=== PATIENT | male | born 1965 | race American Indian/Alaskan Native ===

== ENCOUNTER 2018-12-16 11:24 | Emergency (ER) | payer OTHER ==
--- NOTE | 2018-12-16 11:40 | Emergency Department Report ---
Blank Doc - Documentation Documentation: This is a 53-year-old male that presents with left elbow tingling sensation to fingers. Patient denies one sided weakness. Denies headache, blurry vision or visual changes. Denies any other complaints or symptoms. This initial assessment/diagnostic orders/clinical plan/treatment(s) is/are subject to change based on patient's health status, clinical progression and re- assessment by fellow clinical providers in the ED. Further treatment and workup at subsequent clinical providers discretion. Patient/guardians urged not to elope from the ED as their condition may be serious if not clinically assessed and managed. Initial orders include: 1- Patient sent to [facility] for further evaluation and treatment
[2018-12-16 11:41] VITALS: BP 125/80
--- NOTE | 2018-12-16 12:47 | Emergency Department Report ---
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 The patient started having some pain and swelling to his left forearm with some tingling extending down through his fingers. Patient went to [facility] for a patient of health and was told that he may have had a "TIA or stroke". Patient was reluctant to believe that he may have had a stroke but became worried this morning when his left arm pain was still present. Patient has no focal deficits of weakness or numbness. Patient states that the pain as aching and throbbing in detail with palpation and certain movements. Patient denies any slurred speech. - Related Data Previous Rx's Medication Instructions Recorded Last Taken Type Ibuprofen [Motrin 800 MG tab] 800 mg PO Q8HR PRN #10 tablet 12/16/18 Unknown Rx methOCARBAMOL [Robaxin TAB] 500 mg PO Q6H PRN #14 tablet 12/16/18 Unknown Rx Allergies Allergy/AdvReac Type Severity Reaction Status Date / Time No Known Allergies Allergy Unverified 12/16/18 11:32 ED Review of Systems ROS: Stated complaint: LT ARM PAIN Other details as noted in HPI Comment: All other systems reviewed and negative ED Past Medical Hx - Past Medical History Previous Medical History?: Yes Hx Hypertension: Yes Hx Diabetes: Yes - Surgical History Past Surgical History?: No - Social History Smoking Status: Never Smoker Substance Use Type: None - Medications Home Medications: Home Medications Medication Instructions Recorded Confirmed Last Taken Type Ibuprofen [Motrin 800 MG tab] 800 mg PO Q8HR PRN #10 tablet 12/16/18 Unknown Rx methOCARBAMOL [Robaxin TAB] 500 mg PO Q6H PRN #14 tablet 12/16/18 Unknown Rx ED Physical Exam - General Limitations: No Limitations General appearance: alert, in no apparent distress - Head Head exam: Present: atraumatic, normocephalic - Eye Eye exam: Present: normal appearance - ENT ENT exam: Present: mucous membranes moist - Neck Neck exam: Present: normal inspection - Respiratory Respiratory exam: Present: normal lung sounds bilaterally. Absent: respiratory distress, wheezes, rales, rhonchi - Cardiovascular Cardiovascular Exam: Present: regular rate, normal rhythm, normal heart sounds. Absent: systolic murmur, diastolic murmur, rubs, gallop - GI/Abdominal GI/Abdominal exam: Present: soft, normal bowel sounds. Absent: distended, tenderness, guarding, rebound - Rectal Rectal exam: Present: deferred - Extremities Exam Extremities exam: Present: normal inspection - Expanded Upper Extremity Exam Left Forearm Wrist exam: Present: normal inspection, full ROM, tenderness (on the anterior proximal forearm. ), other (painpain forarm when pushing away). Absent: swelling Hand Wrist exam: Present: normal inspection, full ROM - Back Exam Back exam: Present: normal inspection - Neurological Exam Neurological exam: Present: alert, oriented X3 - Psychiatric Psychiatric exam: Present: normal affect, normal mood - Skin Skin exam: Present: warm, dry, intact, normal color. Absent: rash ED Course Vital Signs 12/16/18 11:39 Temperature 97.8 F Pulse Rate 79 Respiratory 20 Rate Blood Pressure 125/80 O2 Sat by Pulse 100 Oximetry ED Medical Decision Making - Medical Decision Making Patient shows no evidence of any weakness or decreased sensation. Patient has some aching of the muscle could've possibly also has some muscle spasm. Patient treated with medication for symptomatic relief. Critical care attestation.: If time is entered above; I have spent that time in minutes in the direct care of this critically ill patient, excluding procedure time. ED Disposition Clinical Impression: Muscle strain, Muscle spasm Disposition: - TO HOME OR SELFCARE Is pt being admited?: No Does the pt Need Aspirin: No Condition: Stable Instructions: Muscle Strain (ED) Referrals: BELLA CISNEROS MD [Primary Care Provider] - 3-5 Days Time of Disposition: 12:46
== END 2018-12-16 13:05 | disposition home or self-care (01) ==
LOC: ED 11:24
DX: S56.912A Strain of unspecified muscles, fascia and tendons at forearm level, left arm, initial encounter (principal); M62.838 Other muscle spasm; I10 Essential (primary) hypertension; E11.9 Type 2 diabetes mellitus without complications; X50.0XXA Overexertion from strenuous movement or load, initial encounter; Y93.89 Activity, other specified; Y92.69 Other specified industrial and construction area as the place of occurrence of the external cause; Y99.8 Other external cause status

== ENCOUNTER 2020-01-10 07:50 | Observation (INO) | payer OTHER ==
[2020-01-10] MEDS ORDERED: ASPIRIN 81 MG TAB CHEW PO ONE (07:56)
--- NOTE | 2020-01-10 08:05 | Emergency Department Report ---
ED Chest Pain HPI - General Chief Complaint: Chest Pain Stated Complaint: CHEST PAIN PUI?: No Time Seen by Provider: 01/10/20 07:55 Source: patient, EMS Mode of arrival: Stretcher Limitations: No Limitations - History of Present Illness Initial Comments: This is a 54-year-old male with history of hypertension, dyslipidemia, diabetes mellitus and obesity who presents with substernal right-sided chest pain since Friday. He has a dull squeezing intermittent pain. Pain is present at rest. 6 out of 10 dull pain. 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 No previous history of cardiac disease. No family history of cardiac disease. Patient does not smoke. MD Complaint: chest pain -: days(s) (3) Onset: during rest, during exertion Pain Location: substernal, right chest Pain Radiation: none Severity: moderate Severity scale (0 -10): 6 Quality: dull, squeezing, other Consistency: constant Improves With: nothing Worsens With: nothing re: denies: nausea, vomting, diaphoresis, dyspnea Other Symptoms: denies: cough, fever Treatments Prior to Arrival: none - Related Data Previous Rx's Medication Instructions Recorded Last Taken Type Ibuprofen [Motrin 800 MG tab] 800 mg PO Q8HR PRN #10 tablet 12/16/18 Unknown Rx methOCARBAMOL [Robaxin TAB] 500 mg PO Q6H PRN #14 tablet 12/16/18 Unknown Rx Allergies Allergy/AdvReac Type Severity Reaction Status Date / Time No Known Allergies Allergy Unverified 12/16/18 11:32 Heart Score - HEART Score History: Slightly suspicious EKG: Non-specific Age: 45-65 Risk factors: > 3 risk factors or hx of atherosclerotic disease Troponin: < normal limit HEART Score: 4 ED Review of Systems ROS: Stated complaint: CHEST PAIN Other details as noted in HPI Comment: All other systems reviewed and negative Constitutional: denies: fever, malaise Respiratory: denies: cough, shortness of breath Cardiovascular: chest pain Gastrointestinal: denies: abdominal pain, nausea, vomiting ED Past Medical Hx - Past Medical History Previous Medical History?: Yes Hx Hypertension: Yes Hx Diabetes: Yes Additional medical history: hypercholesterol - Family History Family history: hypertension - Social History Smoking Status: Never Smoker Substance Use Type: None - Medications Home Medications: Home Medications Medication Instructions Recorded Confirmed Last Taken Type Ibuprofen [Motrin 800 MG tab] 800 mg PO Q8HR PRN #10 tablet 12/16/18 Unknown Rx methOCARBAMOL [Robaxin TAB] 500 mg PO Q6H PRN #14 tablet 12/16/18 Unknown Rx ED Physical Exam - General Limitations: No Limitations General appearance: alert, in no apparent distress - Head Head exam: Present: atraumatic, normocephalic - Eye Eye exam: Present: normal appearance - ENT ENT exam: Present: mucous membranes moist - Neck Neck exam: Present: normal inspection, full ROM - Respiratory Respiratory exam: Present: normal lung sounds bilaterally. Absent: respiratory distress - Cardiovascular Cardiovascular Exam: Present: regular rate, normal rhythm, normal heart sounds. Absent: systolic murmur, diastolic murmur, rubs, gallop - GI/Abdominal GI/Abdominal exam: Present: soft, normal bowel sounds. Absent: distended, tenderness, guarding, rebound - Rectal Rectal exam: Present: deferred - Extremities Exam Extremities exam: Present: normal inspection - Back Exam Back exam: Present: normal inspection - Neurological Exam Neurological exam: Present: alert, oriented X3 - Psychiatric Psychiatric exam: Present: normal affect, normal mood - Skin Skin exam: Present: warm, dry, intact, normal color. Absent: rash ED Course Vital Signs 01/10/20 01/10/20 01/10/20 08:03 08:24 09:01 Pulse Rate 88 Respiratory 17 20 11 L Rate Blood Pressure 161/118 O2 Sat by Pulse 98 Oximetry 01/10/20 01/10/20 09:05 09:22 Pulse Rate 88 96 H Respiratory Rate Blood Pressure 161/118 147/96 O2 Sat by Pulse Oximetry ED Medical Decision Making - Lab Data Result diagrams: 01/10/20 08:34 01/10/20 08:34 - EKG Data EKG shows normal: axis - EKG Data 01/10/20 08:23 EKG obtained 0819 Atrial flutter irregular conduction ventricular rate 75 bpm normal axis no ST elevation - Medical Decision Making 1. Chest pain: Acute coronary syndrome is a consideration heart score 4 2. New onset atrial flutter heart rate ranges from 75-95 3. Hypertensive urgency addressed with nitroglycerin, beta-henry Admitted to the hospital service for further treatment and evaluation Critical care attestation.: If time is entered above; I have spent that time in minutes in the direct care of this critically ill patient, excluding procedure time. ED Disposition Clinical Impression: Acute coronary syndrome, New onset atrial flutter, Hypertensive urgency Disposition: 09 OP ADMIT IP TO THIS HOSP Is pt being admited?: Yes Does the pt Need Aspirin: No Condition: Stable Referrals: BELLA CISNEROS MD [Primary Care Provider] - 3-5 Days
[2020-01-10 08:51] LABS: Basophils # (Auto) 0.1 K/mm3 (0.0-0.1); Basophils % (Auto) 1.9 % (0.0-1.8); Hematocrit 40.2 % (35.5-45.6); Hemoglobin 13.6 gm/dl (11.8-15.2); Lymphocytes # (Auto) 1.3 K/mm3 (1.2-5.4); Lymphocytes % (Auto) 35.1 % (13.4-35.0); Mean Corpuscular HGB Conc 34 % (32-34); Mean Corpuscular Volume 85 fl (84-94); Monocytes # (Auto) 0.4 K/mm3 (0.0-0.8); Monocytes % (Auto) 11.5 % (0.0-7.3); Platelet Count 184 K/mm3 (140-440); Red Blood Count 4.75 M/mm3 (3.65-5.03); Red Cell Distribution Width 14.3 % (13.2-15.2)
--- NOTE | 2020-01-10 08:51 | XRay Report ---
CHEST 1 VIEW INDICATION: Chest Pain. COMPARISON: None FINDINGS: Support devices: None. Heart: Borderline heart size. Lungs/Pleura: No acute air space or interstitial disease. Additional findings: None. IMPRESSION: Borderline heart size. Lungs clear. Signer Name: Seb Strong Jr, MD Signed: 01/10/2020 8:47 AM Workstation Name: [id number]
[2020-01-10] MEDS: NITROGLYCERIN 0.4 MG TAB SUBL SL ONE ×2 (09:05→09:22)
[2020-01-10 09:08] LABS: BUN/Creatinine Ratio 14; Blood Urea Nitrogen 18 mg/dL (9-20); Calcium 9.1 mg/dL (8.4-10.2); Hemolysis Index 9
[2020-01-10] MEDS ORDERED: METOPROLOL TARTRATE 50 MG TAB PO ONE (10:42)
--- NOTE | 2020-01-10 12:15 | History and Physical Report ---
History of Present Illness Date of examination: 01/10/20 Date of admission: 01/10/20 10:39 Chief complaint: Right sided chest pain History of present illness: 54 year old male with HTN, dyslipidemia, DM and obesity who presents to [facility] with atypical substernal chest pain on the right side since Friday. He describes the pain as squeezing, intermittent and relived with rest. He says the pain was a 10/10 but denies pain at this time. He denies smoking, cough, fatigue, hemoptysis, recent weight loss, n/v, fevers, chills, recent travel or exposure to sick persons or known COVID 19 exposure. 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 Of note he was recently seen here on 12/17/19 for left arm pain after lifting heavy bags and was discharged with a diagnosis of muscle strain. ED workup included a CXR which showed borderline heart size with clear lungs and ECG which showed aflutter. He also received Aspirin 325 and Metoprolol 25mg PO x 1. He is being admitted to the hospital for atypical chest pain with workup and cardiology was consulted. Past History Past Medical History: diabetes, hypertension, hyperlipidemia, other (obesity) Past Surgical History: No surgical history Social history: , lives with family, full code. denies: smoking, alcohol abuse, prescription drug abuse Family history: diabetes, hypertension, stroke Medications and Allergies Allergies Allergy/AdvReac Type Severity Reaction Status Date / Time No Known Allergies Allergy Unverified 12/16/18 11:32 Home Medications Medication Instructions Recorded Confirmed Last Taken Type carvediloL [Coreg] 6.25 mg PO QDAY 01/10/20 01/10/20 10/27/19 History metFORMIN [Glucophage] 500 mg PO QDAY 01/10/20 01/10/20 01/10/20 08:00 History Review of Systems Constitutional: no weight loss, no weight gain, no fever, no chills, no sweats, no night sweats, no fatigue, no weakness, no malaise, no chronic headaches Ears, nose, mouth and throat: no ear pain, no ear discharge, no tinnitis, no decreased hearing, no nose pain, no nasal congestion, no nasal discharge Cardiovascular: chest pain (right sided, relieved with rest), edema (bilateral LE), high blood pressure, leg edema, no orthopnea, no palpitations, no rapid/irregular heart beat, no lightheadedness, no shortness of breath, no dyspnea on exertion Respiratory: no cough, no shortness of breath, no congestion, no wheezing, no pleurisy, no sleep apnea Gastrointestinal: no abdominal pain, no nausea, no vomiting, no diarrhea, no constipation, no change in bowel habits Genitourinary Male: no dysuria, no hematuria, no urinary frequency, no urinary hesitancy Rectal: no pain Musculoskeletal: leg numbness/tingling, no neck stiffness, no neck pain, no shooting arm pain, no arm numbness/tingling, no low back pain, no shooting leg pain Integumentary: no rash, no pruritis, no redness, no sores, no wounds Neurological: tingling, no head injury, no transient paralysis, no paralysis, no weakness, no numbness, no seizures, no vertigo, no headaches Psychiatric: no anxiety, no memory loss, no insomnia, no hypersomnia, no change in appetite Endocrine: no cold intolerance, no heat intolerance, no excessive thirst Hematologic/Lymphatic: no easy bruising, no easy bleeding Allergic/Immunologic: no allergic rhinitis Exam - Constitutional Vitals: Temp Pulse Resp BP Pulse Ox 96 H 11 L 147/96 98 01/10/20 11:32 01/10/20 09:01 01/10/20 11:32 01/10/20 09:01 General appearance: Present: no acute distress - EENT Eyes: Present: PERRL, EOM intact ENT: hearing intact - Neck Neck: Present: normal ROM - Respiratory Respiratory effort: normal Respiratory: bilateral: diminished (2/2 girth) - Cardiovascular Rhythm: irregularly irregular Heart Sounds: Present: S1 & S2. Absent: systolic murmur, diastolic murmur - Extremities Extremities: no ischemia, pulses intact, pulses symmetrical, normal temperature, normal color, Full ROM Extremity abnormal: edema (1+ to bilateral LE) Peripheral Pulses: within normal limits - Abdominal General gastrointestinal: Present: soft, non-tender, non-distended, normal bowel sounds - Integumentary Integumentary: Present: clear, warm, dry - Musculoskeletal Musculoskeletal: strength equal bilaterally - Psychiatric Psychiatric: appropriate mood/affect, cooperative - Neurologic Neurologic: CNII-XII intact, no focal deficits, moves all extremities - Allied Health Allied health notes reviewed: nursing HEART Score - HEART Score EKG: Non-specific Age: 45-65 Risk factors: > 3 risk factors or hx of atherosclerotic disease Troponin: Troponin T < 0.010 ng/mL (0.00-0.029) 01/10/20 08:34 Troponin: < normal limit Results - Labs CBC & Chem 7: 01/10/20 08:34 01/10/20 08:34 Labs: Laboratory Last Values WBC 3.6 K/mm3 (4.5-11.0) L 01/10/20 08:34 RBC 4.75 M/mm3 (3.65-5.03) 01/10/20 08:34 Hgb 13.6 gm/dl (11.8-15.2) 01/10/20 08:34 Hct 40.2 % (35.5-45.6) 01/10/20 08:34 MCV 85 fl (84-94) 01/10/20 08:34 MCH 29 pg (28-32) 01/10/20 08:34 MCHC 34 % (32-34) 01/10/20 08:34 RDW 14.3 % (13.2-15.2) 01/10/20 08:34 Plt Count 184 K/mm3 (140-440) 01/10/20 08:34 Lymph % (Auto) 35.1 % (13.4-35.0) H 01/10/20 08:34 Newton % (Auto) 11.5 % (0.0-7.3) H 01/10/20 08:34 Eos % (Auto) 1.0 % (0.0-4.3) 01/10/20 08:34 Baso % (Auto) 1.9 % (0.0-1.8) H 01/10/20 08:34 Lymph # 1.3 K/mm3 (1.2-5.4) 01/10/20 08:34 Newton # 0.4 K/mm3 (0.0-0.8) 01/10/20 08:34 Eos # 0.0 K/mm3 (0.0-0.4) 01/10/20 08:34 Baso # 0.1 K/mm3 (0.0-0.1) 01/10/20 08:34 Seg Neutrophils % 50.5 % (40.0-70.0) 01/10/20 08:34 Seg Neutrophils # 1.8 K/mm3 (1.8-7.7) 01/10/20 08:34 D-Dimer 161.10 ng/mlDDU (0-234) 01/10/20 08:34 Sodium 142 mmol/L (137-145) 01/10/20 08:34 Potassium 4.3 mmol/L (3.6-5.0) 01/10/20 08:34 Chloride 104.4 mmol/L (98-107) 01/10/20 08:34 Carbon Dioxide 26 mmol/L (22-30) 01/10/20 08:34 Anion Gap 16 mmol/L 01/10/20 08:34 BUN 18 mg/dL (9-20) 01/10/20 08:34 Creatinine 1.3 mg/dL (0.8-1.3) 01/10/20 08:34 Estimated GFR > 60 ml/min 01/10/20 08:34 BUN/Creatinine Ratio 14 % 01/10/20 08:34 Glucose 115 mg/dL (75-100) H 01/10/20 08:34 Calcium 9.1 mg/dL (8.4-10.2) 01/10/20 08:34 Troponin T < 0.010 ng/mL (0.00-0.029) 01/10/20 08:34 TSH 0.543 mlU/mL (0.270-4.200) 01/10/20 08:34 - Imaging and Cardiology EKG: report reviewed Chest x-ray: report reviewed - Diagnostic Impressions Diagnostic Impressions: 01/09 CXR with borderline enlarged heart and clear lungs Bedoya/IV: IV Catheter Type [Right INT / Saline Lock Antecubital] Assessment and Plan Advance Directives: No VTE prophylaxis?: Chemical, Mechanical Plan of care discussed with patient/family: Yes - Patient Problems (1) New onset atrial flutter Current Visit: Yes Status: Acute Plan to address problem: - Cardiac monitoring - Cardiology consulted - Coreg restarted - Lexiscan for AM - ASA 81 - Serial ECG, troponins - PRN nitroglycerin (2) Hypertensive urgency Current Visit: Yes Status: Chronic Plan to address problem: - HTN urgency in ED - Metoprolol 25mg PO x1 in ED - Home Coreg restarted - BP monitoring per protocol (3) Dyslipidemia Current Visit: Yes Status: Chronic Plan to address problem: - Lipid panel ordered (4) Diabetes Current Visit: Yes Status: Chronic Plan to address problem: - 01/09 HbA1C pending - SSI - Accucheck ACHS (5) Morbid obesity Current Visit: Yes Status: Acute (6) DVT prophylaxis Current Visit: Yes Status: Acute Plan to address problem: - SCDs while in bed - Heparin subq
[2020-01-10] MEDS ORDERED: DEXTROSE 50% IN WATER (25GM) 50 ML SYRINGE IV PRN (15:29)
[2020-01-10 16:18] LABS: Chol/HDL Ratio 4.21 %
[2020-01-10] MEDS ORDERED: INSULIN REGULAR, HUMAN 100 UNITS/1 ML IV SCH (16:30)
[2020-01-10] MEDS: [UNRECOGNIZED DRUG - OTHER] SUB-Q SCH (18:27)
[2020-01-10] MEDS: hydrALAZINE 20 MG/1 ML INJ IV PRN (18:31)
[2020-01-10] MEDS: ENOXAPARIN 30 MG/0.3 ML INJ SUB-Q SCH (18:31)
[2020-01-10] MEDS ORDERED: hydrALAZINE 20 MG/1 ML INJ IV ONE (20:33)
[2020-01-10] MEDS ORDERED: HEPARIN 5,000 UNIT/1 ML VIAL SUB-Q SCH (22:00)
[2020-01-10] MEDS: METOPROLOL TARTRATE 25 MG TAB PO SCH (23:02)
[2020-01-10] MEDS: hydrALAZINE 25 MG TAB PO SCH (23:02)
[2020-01-10] MEDS: ENOXAPARIN 100 MG/1 ML INJ SUB-Q SCH (23:02)
[2020-01-11] MEDS: hydrALAZINE 20 MG/1 ML INJ IV PRN (02:16)
[2020-01-11] MEDS: hydrALAZINE 25 MG TAB PO SCH ×2 (05:30→13:12)
[2020-01-11] MEDS: ENOXAPARIN 30 MG/0.3 ML INJ SUB-Q SCH (05:33)
[2020-01-11 05:39] LABS: Basophils % (Auto) 0.6 % (0.0-1.8); Eosinophils % (Auto) 0.8 % (0.0-4.3); Hematocrit 45.6 % (35.5-45.6); Hemoglobin 15.3 gm/dl (11.8-15.2); Lymphocytes # (Auto) 1.3 K/mm3 (1.2-5.4); Lymphocytes % (Auto) 26.3 % (13.4-35.0); Mean Corpuscular HGB Conc 34 % (32-34); Mean Corpuscular Volume 86 fl (84-94); Monocytes # (Auto) 0.5 K/mm3 (0.0-0.8); Monocytes % (Auto) 10.6 % (0.0-7.3); Platelet Count 187 K/mm3 (140-440); Red Blood Count 5.32 M/mm3 (3.65-5.03); Red Cell Distribution Width 14.7 % (13.2-15.2)
[2020-01-11 05:51] LABS: BUN/Creatinine Ratio 14; Blood Urea Nitrogen 14 mg/dL (9-20); Calcium 9.7 mg/dL (8.4-10.2); Hemolysis Index 2
[2020-01-11] MEDS: [UNRECOGNIZED DRUG - OTHER] SUB-Q SCH ×3 (08:09→16:30)
[2020-01-11] MEDS ORDERED: REGADENOSON 0.4 MG/5 ML INJ IV ONE ×2 (08:23→08:43)
--- NOTE | 2020-01-11 08:37 | Progress Note ---
Assessment and Plan - Patient Problems (1) New onset atrial flutter Current Visit: Yes Status: Acute Plan to address problem: - Cardiac monitoring - Cardiology consulted, appreciate recommendations: will have further assessment as an outpatient, for EVER guided cardioversion if atrial flutter persists. - Metoprolol 25mg BID - Eliquis 5 mg twice daily - 01/10 Lexiscan shows no ischemic defects, echocardiogram is pending for left ventricular function assessment - 01/10 EVER shows EF 60 to 65%, trace mitral valve and tricuspid valve regurgitation, mild aortic root dilation, mild bilateral atrial dilation - ASA 81mg qday - Serial ECG, troponins have been negative - PRN nitroglycerin (2) Hypokalemia Current Visit: Yes Status: Acute Plan to address problem: - K 3.5 - Replete as needed (3) Hypertensive urgency Current Visit: Yes Status: Chronic Plan to address problem: - HTN urgency in ED - Metoprolol 25mg PO x1 in ED - Metoprolol 25mg BID - BP monitoring per protocol (4) Dyslipidemia Current Visit: Yes Status: Chronic Plan to address problem: - Lipid panel ordered ( - Lipitor 40mg HS - Patient does not list a statin on home med list (5) Diabetes Current Visit: Yes Status: Chronic Plan to address problem: - 01/09 HbA1C 5.9 - SSI - Accucheck ACHS (6) Morbid obesity Current Visit: Yes Status: Acute Plan to address problem: - Weight loss counseling provided - May consider bariatric surgery, need to f/u outpatient (7) DVT prophylaxis Current Visit: Yes Status: Acute Plan to address problem: - SCDs while in bed - Eliquis 5 mg twice daily History Interval history: 54 year old male with HTN, dyslipidemia, DM and obesity who presents with atypical substernal chest pain on the right side since Friday, 01/06 was found to be in atrial flutter. Cardiology was consulted. Lexiscan scheduled for this AM. Patient states he feels much better and is ready to go home. 01/10: Lexiscan thallium stress test showed a normal perfusion with no ischemia, EVER showed EF 60 to 65% with trace mitral valve regurgitation and tricuspid valve regurgitation, mild dilatation of aortic root, mild dilatation of right and left atria Hospitalist Physical - Constitutional Vitals: Temp Pulse Resp BP Pulse Ox 97.7 F 79 18 144/99 94 01/11/20 04:20 01/11/20 07:59 01/11/20 04:20 01/11/20 04:20 01/11/20 04:20 General appearance: Present: no acute distress - EENT Eyes: Present: PERRL, EOM intact ENT: hearing intact - Neck Neck: Present: supple, normal ROM - Respiratory Respiratory effort: normal Respiratory: bilateral: diminished (Secondary to girth) - Cardiovascular Rhythm: regularly irregular Heart Sounds: Present: S1 & S2. Absent: systolic murmur, diastolic murmur - Extremities Extremities: no ischemia, pulses intact, pulses symmetrical, normal temperature, normal color, Full ROM Extremity abnormal: edema (Nonpitting) Peripheral Pulses: within normal limits - Abdominal General gastrointestinal: soft, non-tender, non-distended, normal bowel sounds - Integumentary Integumentary: Present: clear, warm, dry - Psychiatric Psychiatric: cooperative - Neurologic Neurologic: CNII-XII intact, no focal deficits, moves all extremities - Allied Health Allied health notes reviewed: nursing HEART Score - HEART Score EKG: Non-specific Age: 45-65 Risk factors: > 3 risk factors or hx of atherosclerotic disease Troponin: Troponin T < 0.010 ng/mL (0.00-0.029) 01/11/20 04:55 Troponin: < normal limit Results - Labs CBC & Chem 7: 01/11/20 04:55 01/11/20 04:55 Labs: Laboratory Last Values WBC 5.0 K/mm3 (4.5-11.0) 01/11/20 04:55 RBC 5.32 M/mm3 (3.65-5.03) H 01/11/20 04:55 Hgb 15.3 gm/dl (11.8-15.2) H 01/11/20 04:55 Hct 45.6 % (35.5-45.6) 01/11/20 04:55 MCV 86 fl (84-94) 01/11/20 04:55 MCH 29 pg (28-32) 01/11/20 04:55 MCHC 34 % (32-34) 01/11/20 04:55 RDW 14.7 % (13.2-15.2) 01/11/20 04:55 Plt Count 187 K/mm3 (140-440) 01/11/20 04:55 Lymph % (Auto) 26.3 % (13.4-35.0) 01/11/20 04:55 [place] % (Auto) 10.6 % (0.0-7.3) H 01/11/20 04:55 Eos % (Auto) 0.8 % (0.0-4.3) 01/11/20 04:55 Baso % (Auto) 0.6 % (0.0-1.8) 01/11/20 04:55 Lymph # 1.3 K/mm3 (1.2-5.4) 01/11/20 04:55 [place] # 0.5 K/mm3 (0.0-0.8) 01/11/20 04:55 Eos # 0.0 K/mm3 (0.0-0.4) 01/11/20 04:55 Baso # 0.0 K/mm3 (0.0-0.1) 01/11/20 04:55 Seg Neutrophils % 61.7 % (40.0-70.0) 01/11/20 04:55 Seg Neutrophils # 3.1 K/mm3 (1.8-7.7) 01/11/20 04:55 D-Dimer 161.10 ng/mlDDU (0-234) 01/10/20 08:34 Sodium 137 mmol/L (137-145) 01/11/20 04:55 Potassium 3.5 mmol/L (3.6-5.0) L 01/11/20 04:55 Chloride 98.0 mmol/L (98-107) 01/11/20 04:55 Carbon Dioxide 24 mmol/L (22-30) 01/11/20 04:55 Anion Gap 19 mmol/L 01/11/20 04:55 BUN 14 mg/dL (9-20) 01/11/20 04:55 Creatinine 1.0 mg/dL (0.8-1.3) 01/11/20 04:55 Estimated GFR > 60 ml/min 01/11/20 04:55 BUN/Creatinine Ratio 14 % 01/11/20 04:55 Glucose 144 mg/dL (75-100) H 01/11/20 04:55 POC Glucose 83 (70-105) 01/10/20 22:17 Hemoglobin A1c 5.9 % (4-6) 01/10/20 14:46 Calcium 9.7 mg/dL (8.4-10.2) 01/11/20 04:55 Troponin T < 0.010 ng/mL (0.00-0.029) 01/11/20 04:55 Triglycerides 117 mg/dL (2-149) 01/10/20 14:46 Cholesterol 215 mg/dL (50-199) H 01/10/20 14:46 LDL Cholesterol Direct 162 mg/dL (50-130) H 01/10/20 14:46 HDL Cholesterol 51 mg/dL (40-59) 01/10/20 14:46 Cholesterol/HDL Ratio 4.21 % 01/10/20 14:46 TSH 0.543 mlU/mL (0.270-4.200) 01/10/20 08:34 Bedoya/IV: Voiding Method Toilet IV Catheter Type [Right INT / Saline Lock Antecubital] Active Medications - Current Medications Current Medications: Generic Name Dose Route Start Last Admin Trade Name Freq PRN Reason Stop Dose Admin Aspirin 81 mg 01/11/20 10:00 Baby Aspirin PO QDAY RAGHU Dextrose 50 ml 01/10/20 15:29 D50w (25gm) Syringe IV Q30MIN PRN Hypoglycemia Protocol Enoxaparin Sodium 100 mg 01/10/20 22:00 01/10/20 23:02 Enoxaparin SUB-Q 100 mg Q12HR RAGHU Administration Enoxaparin Sodium 30 mg 01/10/20 18:00 01/11/20 05:33 Enoxaparin SUB-Q 30 mg Q12H RAGHU Administration Hydralazine HCl 25 mg 01/10/20 22:00 01/11/20 05:30 Apresoline PO 25 mg Q8HR RAGHU Administration Hydralazine HCl 10 mg 01/10/20 17:01 01/11/20 02:16 Apresoline IV 10 mg Q4HR PRN Administration Hypertension Insulin Human Regular 0 unit 01/10/20 16:30 01/11/20 08:09 Humulin R SUB-Q Not Given AC [facility] Protocol Metoprolol Tartrate 25 mg 01/10/20 22:00 01/10/20 23:02 Metoprolol PO 25 mg BID RAGHU Administration Pantoprazole Sodium 40 mg 01/11/20 10:00 Protonix IV QDAY RAGHU Sodium Chloride 10 ml 01/10/20 12:16 Sodium Chloride Flush Syringe 10 Ml IV PRN PRN LINE FLUSH
[2020-01-11] MEDS ORDERED: carvediloL 6.25 MG TAB PO SCH (10:00)
[2020-01-11] MEDS ORDERED: PANTOPRAZOLE 40 MG INJ IV SCH (10:00)
[2020-01-11] MEDS ORDERED: POTASSIUM CHLORIDE ER 20 MEQ TAB PO ONE (10:00)
[2020-01-11] MEDS ORDERED: ASPIRIN 81 MG TAB CHEW PO SCH (10:00)
--- NOTE | 2020-01-11 10:35 | Treadmill Report ---
THALLIUM STRESS TEST LEFT VENTRICLE: Left ventricular chamber size is within normal spread. Perfusion study demonstrates fairly homogeneous uptake of the tracer in all segments. No significant defects identified. Mild diaphragmatic attenuation artifact is noted. Gated study is not available due to the patient's irregular heartbeat. CONCLUSION: Normal myocardial perfusion, no defects identified. Clinical correlation is recommended and echocardiographic assessment of left ventricular function is recommended. JOB# [id number] CA/NTS
[2020-01-11] MEDS: METOPROLOL TARTRATE 25 MG TAB PO SCH (11:28)
[2020-01-11] MEDS: ENOXAPARIN 100 MG/1 ML INJ SUB-Q SCH (11:28)
--- NOTE | 2020-01-11 11:29 | Consultation ---
History of Present Illness Consult date: 01/11/20 Consult reason: chest pain, other (Atrial flutter) History of present illness: The patient is a 54-year-old man with hypertension and diabetes, on carvedilol and metformin. His primary care doctor is Dr. Vijay Pabon in [place]. He has no prior cardiac history. He presented to the emergency room with atypical, nonexertional chest pain associated with some shortness of breath. ECG in the emergency room was atrial flutter with 3-1 AV conduction, ventricular rate of 75. He was admitted for further evaluation and cardiac consultation was requested. Chest x-ray was normal size cardiac silhouette and clear lungs. Cardiac troponin levels were negative. TSH level was normal at 0.54. Today, he underwent a Lexiscan thallium stress test ordered by the medical service, results show a normal perfusion with no ischemia. Past History Past Medical History: diabetes, hypertension, hyperlipidemia, other (obesity) Past Surgical History: No surgical history Social history: , lives with family, full code. denies: smoking, alcohol abuse, prescription drug abuse Family history: diabetes, hypertension, stroke Medications and Allergies Allergies Allergy/AdvReac Type Severity Reaction Status Date / Time No Known Allergies Allergy Unverified 12/16/18 11:32 Home Medications Medication Instructions Recorded Confirmed Last Taken Type carvediloL [Coreg] 6.25 mg PO QDAY 01/10/20 01/10/20 10/27/19 History metFORMIN [Glucophage] 500 mg PO QDAY 01/10/20 01/10/20 01/10/20 08:00 History Active Meds: Active Medications Aspirin (Baby Aspirin) 81 mg PO QDAY [facility] Atorvastatin Calcium (Lipitor) 40 mg PO QHS [facility] Dextrose (D50w (25gm) Syringe) 50 ml IV Q30MIN PRN; Protocol PRN Reason: Hypoglycemia Enoxaparin Sodium (Enoxaparin) 100 mg SUB-Q Q12HR RAGHU Last Admin: 01/10/20 23:02 Dose: 100 mg Documented by: Enoxaparin Sodium (Enoxaparin) 30 mg SUB-Q Q12HR RAGHU Hydralazine HCl (Apresoline) 25 mg PO Q8HR RAGHU Last Admin: 01/11/20 05:30 Dose: 25 mg Documented by: Hydralazine HCl (Apresoline) 10 mg IV Q4HR PRN PRN Reason: Hypertension Last Admin: 01/11/20 02:16 Dose: 10 mg Documented by: Insulin Human Regular (Humulin R) 0 unit SUB-Q AC [facility]; Protocol Last Admin: 01/11/20 08:09 Dose: Not Given Documented by: Metoprolol Tartrate (Metoprolol) 25 mg PO BID [facility] Last Admin: 01/10/20 23:02 Dose: 25 mg Documented by: Pantoprazole Sodium (Protonix) 40 mg IV QDAY [facility] Sodium Chloride (Sodium Chloride Flush Syringe 10 Ml) 10 ml IV PRN PRN PRN Reason: LINE FLUSH Review of Systems Cardiovascular: chest pain, shortness of breath, no orthopnea, no palpitations, no rapid/irregular heart beat, no edema, no syncope, no lightheadedness Physical Examination Vital Signs Resp 17 01/10/20 08:03 General appearance: no acute distress HEENT: Positive: PERRL Neck: Positive: neck supple Cardiac: Positive: irregularly irregular Lungs: Positive: Decreased Breath Sounds Neuro: Positive: Grossly Intact Abdomen: Positive: Soft Male genitourinary: Positive: deferred Skin: Positive: Clear Extremities: Absent: edema Results 01/11/20 04:55 01/11/20 04:55 Lipids 01/10/20 Range/Units 14:46 Triglycerides 117 (2-149) mg/dL Cholesterol 215 H (50-199) mg/dL HDL Cholesterol 51 (40-59) mg/dL Cholesterol/HDL Ratio 4.21 % CBC 01/11/20 Range/Units 04:55 WBC 5.0 (4.5-11.0) K/mm3 RBC 5.32 H (3.65-5.03) M/mm3 Hgb 15.3 H (11.8-15.2) gm/dl Hct 45.6 (35.5-45.6) % Plt Count 187 (140-440) K/mm3 Lymph # 1.3 (1.2-5.4) K/mm3 [place] # 0.5 (0.0-0.8) K/mm3 Eos # 0.0 (0.0-0.4) K/mm3 Baso # 0.0 (0.0-0.1) K/mm3 Comprehensive Metabolic Panel 01/11/20 Range/Units 04:55 Sodium 137 (137-145) mmol/L Potassium 3.5 L (3.6-5.0) mmol/L Chloride 98.0 (98-107) mmol/L Carbon Dioxide 24 (22-30) mmol/L BUN 14 (9-20) mg/dL Creatinine 1.0 (0.8-1.3) mg/dL Glucose 144 H (75-100) mg/dL Calcium 9.7 (8.4-10.2) mg/dL EKG interpretations - Telemetry EKG Rhythm: Atrial Flutter Assessment and Plan - Patient Problems (1) Atrial flutter Current Visit: Yes Status: Acute Plan to address problem: Patient with hypertension diabetes and obesity, presents with atrial flutter, of uncertain chronicity. His AV rate control is optimal, on low-dose beta- henry. Lexiscan thallium stress test shows no ischemic defects. We have ordered an echocardiogram for left ventricular function assessment. Additional medical therapy will be based on left ventricular function. We will initiate long-term oral anticoagulation with Eliquis 5 mg twice daily for CVA prophylaxis. Ultimately, he will have further assessment as an outpatient, for EVER guided cardioversion if atrial flutter persists. (2) Chest pain Current Visit: Yes Status: Acute Plan to address problem: Chest pain is atypical, Lexiscan thallium stress test shows no ischemic defects, echocardiogram is pending for left ventricular function assessment.
[2020-01-11 13:12] VITALS: BP 154/74
--- NOTE | 2020-01-11 16:36 | Discharge Summary ---
Providers - Providers Date of Admission: 01/10/20 10:39 Date of discharge: 01/11/20 Attending physician: RAYA ISAACS 01/10/20 Consult to Cardiac Rehabilitation [CONS] Routine Reason For Exam: Phase I 01/10/20 12:16 Consult to Cardiology [CONS] Routine Consulting Provider: APRIL MCDOWELL Reason For Exam: Franko, NETTIE Primary care physician: BELLA CISNEROS MD Hospitalization Reason for admission: Atypical chest pain/new onset atrial flutter Condition: Stable Pertinent studies: Exercise stress test; no ischemia Echo EF 60 to 65%, mild LVH Chest x-ray; borderline heart size, lungs clear Hospital course: 54 year old male with HTN, dyslipidemia, DM and obesity who presents to [facility] with atypical substernal chest pain on the right side since Friday. Initial work-up was consistent with, new onset atrial flutter, patient had serial cardiac enzymes, subsequently evaluated by cardiology, underwent stress test which was negative for ischemia Normal left ventricular function, patient was started on beta-blockers, initially Lovenox full dose later changed to Eliquis 5 mg twice a day, patient's blood pressure medications were adjusted Today patient is comfortable no new complaints vital signs stable physical examination prior to discharge is unremarkable Cleared by cardiology for discharge and follow-up as outpatient for further evaluation of atrial flutter. Patient is hemodynamically and clinically stable at discharge Discharge diagnosis: --Atypical chest pain; stress test negative --New onset atrial flutter; rate controlled On beta-blockers, Eliquis --Hypertensive urgency; present on admission Now resolved with medications --Dyslipidemia; statin --Type 2 diabetes mellitus; Accu-Chek sliding scale coverage ADA diet, oral hypoglycemics Cleared by cardiology for discharge and follow-up as outpatient Stable at discharge Disposition: DC-01 TO HOME OR SELFCARE Time spent for discharge: 32 min Core Measure Documentation - Palliative Care Palliative Care/ Comfort Measures: Not Applicable - Core Measures Any of the following diagnoses?: none Exam - Constitutional Vitals: Temp Pulse Resp BP Pulse Ox 97.7 F 89 18 154/74 99 01/11/20 04:20 01/11/20 13:12 01/11/20 04:20 01/11/20 13:12 01/11/20 11:30 General appearance: Present: no acute distress, well-nourished - EENT Eyes: Present: PERRL, EOM intact - Neck Neck: Present: supple, normal ROM - Respiratory Respiratory effort: normal Respiratory: bilateral: diminished, negative: rales, rhonchi, wheezing - Cardiovascular Rhythm: regular Heart Sounds: Present: S1 & S2 - Extremities Extremities: no ischemia, No edema - Abdominal General gastrointestinal: Present: soft, non-tender, non-distended, normal bowel sounds - Integumentary Integumentary: Present: clear, warm - Musculoskeletal Musculoskeletal: strength equal bilaterally - Psychiatric Psychiatric: appropriate mood/affect, cooperative - Neurologic Neurologic: moves all extremities Plan Activity: no restrictions Diet: other (cardiac diet) Additional Instructions: If you have worsening symptoms contact MD or go to emergency room. Exercise as tolerated and weight reduction medically stable Follow up with: BELLA CISNEROS MD [Primary Care Provider] - 3-5 Days APRIL MCDOWELL MD [Staff Physician] - 7 Days Prescriptions: hydrALAZINE [Apresoline TAB] 25 mg PO Q8HR #90 tablet Apixaban [Eliquis] 5 mg PO Q12HR #60 tablet AtorvaSTATin [Lipitor] 40 mg PO QHS #30 tablet Metoprolol [Lopressor TAB] 25 mg PO BID #30 tablet
[2020-01-11] MEDS ORDERED: ENOXAPARIN 30 MG/0.3 ML INJ SUB-Q SCH (22:00)
[2020-01-11] MEDS ORDERED: APIXABAN 5 MG TAB PO SCH (22:00)
== END 2020-01-11 18:27 | disposition home or self-care (01) ==
LOC: ED 07:50 → 4A 10:39
PROVIDERS: ADMIT Internal Medicine; ATTEND Internal Medicine
DX: R07.89 Other chest pain (principal); I48.92 Unspecified atrial flutter; I16.0 Hypertensive urgency; E78.5 Hyperlipidemia, unspecified; E11.9 Type 2 diabetes mellitus without complications; E66.01 Morbid (severe) obesity due to excess calories; E87.6 Hypokalemia; I10 Essential (primary) hypertension; I24.9 Acute ischemic heart disease, unspecified; E78.00 Pure hypercholesterolemia, unspecified; Z79.84 Long term (current) use of oral hypoglycemic drugs; Z79.01 Long term (current) use of anticoagulants; Z79.899 Other long term (current) drug therapy; Z68.38 Body mass index [BMI] 38.0-38.9, adult
CPT/HCPCS: 36415; 71045; 78452; 80048; 80061; 82962; 83036; 84443; 84484; 85025; 85379; 93005; 93017; 93306; 96372; 96374; 96375; 96376; 99285; A9502; C9113; G0378; J0360; J1650; J2785; J1815

== ENCOUNTER 2021-05-07 09:37 | Emergency (ER) | payer OTHER ==
[2021-05-07] MEDS ORDERED: NITROGLYCERIN 0.4 MG TAB SUBL SL PRN (09:46)
--- NOTE | 2021-05-07 09:48 | Emergency Department Report ---
ED General Adult HPI - General Stated complaint: CHEST PAIN Time Seen by Provider: 05/07/21 09:43 - History of Present Illness Initial comments: Patient presents by ambulance secondary to chest pain. He describes an aching substernal pain. It does not radiate or migrate. He bent over this morning and felt short of breath in addition. He had a hard time catching his breath. Patient states that the pain does not radiate or migrate. It is not speci fically exertional. There is no history of recent travel or trauma. The pain is not pleuritic. It is substernally located. He states that he did get partial relief from the aspirin and nitro the paramedics administered. He has been taking his Eliquis that he is on for an irregular heartbeat. He does not know who his deicer element winder machine is. He states that he has never had a heart attack. - Related Data Home Medications Medication Instructions Recorded Confirmed Last Taken metFORMIN [Glucophage] 500 mg PO QDAY 01/10/20 01/10/20 01/10/20 08:00 Previous Rx's Medication Instructions Recorded Last Taken Type Apixaban [Eliquis] 5 mg PO Q12HR #60 tablet 01/11/20 Unknown Rx AtorvaSTATin [Lipitor] 40 mg PO QHS #30 tablet 01/11/20 Unknown Rx Metoprolol [Lopressor TAB] 25 mg PO BID #30 tablet 01/11/20 Unknown Rx hydrALAZINE [Apresoline TAB] 25 mg PO Q8HR #90 tablet 01/11/20 Unknown Rx Allergies Allergy/AdvReac Type Severity Reaction Status Date / Time No Known Allergies Allergy Unverified 12/16/18 11:32 ED Review of Systems ROS: Stated complaint: CHEST PAIN Other details as noted in HPI Comment: All other systems reviewed and negative Constitutional: denies: fever Eyes: denies: eye pain ENT: denies: throat pain Respiratory: denies: cough Cardiovascular: as per HPI Endocrine: denies: unexplained weight loss Gastrointestinal: denies: abdominal pain Genitourinary: denies: dysuria Musculoskeletal: denies: back pain Skin: denies: rash Neurological: denies: headache Hematological/Lymphatic: denies: easy bruising ED Past Medical Hx - Past Medical History Hx Hypertension: Yes Hx Diabetes: Yes Additional medical history: hypercholesterol - Social History Smoking Status: Never Smoker - Medications Home Medications: Home Medications Medication Instructions Recorded Confirmed Last Taken Type metFORMIN [Glucophage] 500 mg PO QDAY 01/10/20 01/10/20 01/10/20 08:00 History Apixaban [Eliquis] 5 mg PO Q12HR #60 tablet 01/11/20 Unknown Rx AtorvaSTATin [Lipitor] 40 mg PO QHS #30 tablet 01/11/20 Unknown Rx Metoprolol [Lopressor TAB] 25 mg PO BID #30 tablet 01/11/20 Unknown Rx hydrALAZINE [Apresoline TAB] 25 mg PO Q8HR #90 tablet 01/11/20 Unknown Rx ED Physical Exam - General Limitations: No Limitations, Other General appearance: alert, in no apparent distress - Head Head exam: Present: atraumatic, normocephalic, normal inspection - Eye Eye exam: Present: normal appearance, EOMI. Absent: scleral icterus - ENT ENT exam: Present: normal exam, normal orophraynx - Neck Neck exam: Present: normal inspection. Absent: meningismus - Respiratory Respiratory exam: Present: normal lung sounds bilaterally. Absent: respiratory distress - Cardiovascular Cardiovascular Exam: Present: regular rate, normal rhythm - GI/Abdominal GI/Abdominal exam: Present: soft. Absent: tenderness - Extremities Exam Extremities exam: Present: normal capillary refill. Absent: pedal edema - Back Exam Back exam: Absent: CVA tenderness (R), CVA tenderness (L) - Neurological Exam Neurological exam: Present: alert, oriented X3, CN II-XII intact, reflexes normal. Absent: motor sensory deficit - Psychiatric Psychiatric exam: Present: normal affect, normal mood - Skin Skin exam: Present: warm, dry ED Course - Reevaluation(s) Reevaluation #1: 05/07/21 09:47 EMS was met upon arrival. EKG was noted. IV labs ordered. Old records reviewed. Reevaluation #2: 05/07/21 13:51 Labs are noted. Patient was resting and subsequently discharged. ED Medical Decision Making - Lab Data Result diagrams: 05/07/21 10:04 05/07/21 10:04 Rhythm strip: Atrial flutter without ectopy. Monitor observed in seconds. - EKG Data -: EKG Interpreted by Wy - EKG Data 05/07/21 09:47 [id number] shows atrial flutter at 86. QRS is normal at 88. QT corrected is normal at 469. Patient has flutter waves noted as dictated. There is artifact. He has some ST elevation in V2 and V3. There is no interval change from EKG dated January 2020. - Radiology Data Radiology results: report reviewed, image reviewed - Medical Decision Making Patient presents with chest pain. Etiology for this is unknown. There is no evidence of STEMI or NSTEMI. He does not have pneumonia or pneumothorax based on radiographic evidence. There is no wide mediastinum or pulse deficit to suggest aortic dissection. His pain was not pleuritic and he is not hypoxic. I do not believe this represents pulmonary embolism. Etiology for the symptoms remains unclear. Regardless, he would like to go home. I discussed the risks, benefits, and alternatives with him. He verbalizes understanding and is able to repeat and recall our discussion. Patient has been invited to return if he changes his mind about admission. He is otherwise referred to his deicer element winder machine for recheck and follow-up. He does have the capacity to make this decision at this time. Critical Care Time: No Critical care attestation.: If time is entered above; I have spent that time in minutes in the direct care of this critically ill patient, excluding procedure time. ED Disposition Clinical Impression: Substernal chest pain Disposition: HOME / SELF CARE / HOMELESS Is pt being admited?: No Condition: Stable Instructions: Nonspecific Chest Pain, Adult, Pain Without a Known Cause Additional Instructions: Continue home medication. Drink plenty water. Return for problems. Follow-up with your regular doctor and your deicer element winder machine for recheck and further management. Referrals: STEPHANIE NUNEZ MD [Primary Care Provider] - 3-5 Days CORAL SANDERSON MD [Staff Physician] - 3-5 Days
[2021-05-07 10:59] LABS: Hematocrit 45.4 % (35.5-45.6); Hemoglobin 14.5 gm/dl (11.8-15.2); Mean Corpuscular HGB Conc 32 % (32-34); Mean Corpuscular Volume 89 fl (84-94); Platelet Count 182 K/mm3 (140-440)
[2021-05-07 11:20] LABS: BUN/Creatinine Ratio 16; Blood Urea Nitrogen 19 mg/dL (9-20); Calcium 10.2 mg/dL (8.4-10.2); Hemolysis Index 19
--- NOTE | 2021-05-07 13:15 | XRay Report ---
CHEST 2 VIEWS INDICATION / CLINICAL INFORMATION: SUBSTERNAL CHEST pain, SOB. COMPARISON: 01/10/2020 FINDINGS: SUPPORT DEVICES: None. HEART / MEDIASTINUM: No significant abnormality. LUNGS / PLEURA: No significant pulmonary or pleural abnormality. No pneumothorax. ADDITIONAL FINDINGS: No significant additional findings. IMPRESSION: 1. No acute findings. Signer Name: Александр Ryan MD Signed: 05/07/2021 1:11 PM Workstation Name: [id number], [id number]
[2021-05-07 16:45] VITALS: BP 133/89
--- NOTE | 2021-05-08 11:13 | Electrocardiograph Report ---
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 Anteroseptal infarct, old No previous ECG available for comparison Electronically Signed On 05-08-2021 11:13:02 EST by Rob Walls
== END 2021-05-07 16:46 | disposition home or self-care (01) ==
LOC: ED 09:37
DX: R07.2 Precordial pain (principal); I10 Essential (primary) hypertension; E11.9 Type 2 diabetes mellitus without complications; E78.00 Pure hypercholesterolemia, unspecified; Z79.84 Long term (current) use of oral hypoglycemic drugs; Z79.899 Other long term (current) drug therapy
CPT/HCPCS: 36415; 71046; 80048; 84484; 85027; 93005; 99284